=== PATIENT | female | born 1955 | race Caucasian/White ===

== ENCOUNTER → 2016-12-09 | Outpatient (CLI) | payer MEDICAID ==
[~2016-12-09] MED LIST: AMLO5TAB2 PO; CETI10TA18 PO; DIPH25TA2 PO; ENAL10TA PO; FERR324T5 PO; FEXO60TA9 PO; GABA300C10 PO; LEVO100T5 PO; MAGNESIUM PO; METF10002 PO; NAPH30DR2 EACHEYE; NAPR500T3 PO; SENN1TAB70 PO; SIMV20TA3 PO; TURM500C8 PO; [UNRECOGNIZED DRUG - CODE] EACHEYE
[2016-12-09 12:34] LABS: HEMOGLOBIN 13.9 g/dL (11.7-16.4)
[2016-12-09 12:46] LABS: ASPARTATE AMINO TRANSFERASE 21 U/L (15-37); BLOOD UREA NITROGEN 18 mg/dL (7-18)
== END | disposition home or self-care (01) ==
LOC: STAR 11:27
PROVIDERS: ATTEND Neurological Surgery
DX: Z01.818 Encounter for other preprocedural examination (principal); I10 Essential (primary) hypertension; E11.9 Type 2 diabetes mellitus without complications
CPT/HCPCS: 36415; 71020; 80053; 85025; 85610; 85730; 93005

== ENCOUNTER 2016-12-23 07:13 | Inpatient (IN) | payer MEDICAID, OTHER ==
[~2016-12-23] VITALS: Ht 165.1 cm; Wt 106.8 kg
[~2016-12-23 07:13] MED LIST changes: +BACITRACIN 50,000 UNIT ONE; +BUPIVACAINE/PF-EPI 0.5% 1:200K ONE; +THROMBIN 5,000 UNIT VIAL TP ONE
[2016-12-23] MEDS ORDERED: LACTATED RINGERS 1,000 ML IV SCH (07:41)
[2016-12-23 07:42] VITALS: BP 133/81
[2016-12-23] MEDS ORDERED: PNEUMOCOCCAL 23 VACCINE IM-VACC ONE (08:00)
[2016-12-23] MEDS ORDERED: MIDAZOLAM 1 MG/ML, 2ML ONE (09:00)
[2016-12-23] MEDS ORDERED: FENTANYL PF 250 MCG/5ML ONE (09:00)
[2016-12-23] MEDS ORDERED: ONDANSETRON 2MG/ML, 2ML ONE (09:47)
[2016-12-23] MEDS ORDERED: ROCURONIUM 10 MG/ML ONE (09:47)
[2016-12-23] MEDS ORDERED: NEOSTIGMINE 1 MG/ML, 10ML ONE (09:47)
[2016-12-23] MEDS ORDERED: CEFAZOLIN 1,000 MG ONE (09:47)
[2016-12-23] MEDS ORDERED: DEXAMETHASONE 4 MG/ML, 5ML ONE (09:47)
[2016-12-23] MEDS ORDERED: PROPOFOL 10 MG/ML, 20ML ONE (09:47)
[2016-12-23] MEDS ORDERED: GLYCOPYRROLATE 0.2MG/1ML ONE (09:47)
[2016-12-23] MEDS ORDERED: FENTANYL PF 100 MCG/2ML ONE (12:03)
[2016-12-23] MEDS ORDERED: OXYcodone 5 MG/5 ML ORAL.SOL UDC ONE (12:03)
[2016-12-23] MEDS: FENTANYL PF 100 MCG/2ML IV PRN ×2 (12:08→12:35)
[2016-12-23] MEDS ORDERED: MEPERIDINE/PF 25MG/0.5ML IVPush PRN (12:30)
[2016-12-23] MEDS ORDERED: ACETAMINOPHEN 325 MG TABLET PO PRN (12:30)
[2016-12-23] MEDS ORDERED: hydrALAzine 20 MG/ML, 1ML IV PRN (12:30)
[2016-12-23] MEDS ORDERED: OXYcodone 5 MG/5 ML ORAL.SOL UDC PO PRN (12:30)
[2016-12-23] MEDS ORDERED: LABETALOL 5MG/ML, 20ML IV PRN (12:30)
[2016-12-23] MEDS ORDERED: HYDROmorphone 1 MG/ML, 1ML IV PRN (12:30)
[2016-12-23] MEDS ORDERED: ONDANSETRON 2MG/ML, 2ML IVPush PRN (12:30)
[2016-12-23] MEDS ORDERED: HYDROmorphone 2 MG/ML, 1ML ONE (12:39)
[2016-12-23 13:45] VITALS: BP 122/73
[2016-12-23] MEDS ORDERED: DIPHENHYDRAMINE 50 MG/ML, 1ML IM PRN (14:30)
[2016-12-23] MEDS ORDERED: HYDROmorphone 2 MG/ML, 1ML IM PRN (14:30)
[2016-12-23] MEDS ORDERED: ONDANSETRON 2MG/ML, 2ML IV PRN (14:30)
[2016-12-23] MEDS ORDERED: DIPHENHYDRAMINE 50 MG/ML, 1ML IVPush PRN (14:30)
[2016-12-23] MEDS ORDERED: OXYcodone/APAP 5/325MG TABLET PO PRN (14:30)
[2016-12-23] MEDS ORDERED: HYDROmorphone 2MG TABLET PO PRN (14:30)
[2016-12-23] MEDS ORDERED: METHOCARBAMOL 750 MG TABLET PO PRN (14:30)
[2016-12-23] MEDS ORDERED: MAGNESIUM HYDROXIDE 8%, 30ML UDC PO PRN (14:30)
[2016-12-23] MEDS ORDERED: PROMETHAZINE 25 MG/ML, 1ML IM PRN (14:30)
[2016-12-23] MEDS ORDERED: BISACODYL 10 MG SUPP PR PRN (14:30)
[2016-12-23] MEDS ORDERED: DIPHENHYDRAMINE 50 MG CAPSULE PO PRN (14:30)
[2016-12-23] MEDS: NS + 20MEQ KCL 1,000 ML IV SCH (15:51)
[2016-12-23] MEDS: MAGNESIUM OXIDE 400 MG TABLET PO SCH ×2 (15:52→21:50)
[2016-12-23] MEDS: metFORMIN 500 MG TABLET PO SCH (17:44)
[2016-12-23] MEDS: CEFAZOLIN PMX 1GM/50ML 50 ML IVPB SCH (17:44)
[2016-12-23] MEDS: FERROUS SULFATE 325 MG TABLET PO SCH (17:50)
[2016-12-23 19:29] VITALS: BP 114/54
[2016-12-23] MEDS ORDERED: GABAPENTIN 300 MG CAPSULE PO SCH (21:00)
[2016-12-23] MEDS ORDERED: SENNA/DOCUSATE TABLET PO SCH (21:00)
[2016-12-23] MEDS ORDERED: SIMVASTATIN 20 MG TABLET PO SCH (21:00)
[2016-12-23] MEDS ORDERED: ZOLPIDEM 5MG TABLET PO PRN (21:00)
[2016-12-23] MEDS: ENALAPRIL 10 MG TABLET PO SCH (21:50)
[2016-12-23 23:44] VITALS: BP 110/56
[2016-12-24] MEDS: CEFAZOLIN PMX 1GM/50ML 50 ML IVPB SCH (03:00)
[2016-12-24] MEDS: NS + 20MEQ KCL 1,000 ML IV SCH ×2 (03:00→15:30)
[2016-12-24 03:15] VITALS: BP 93/42
[2016-12-24] MEDS ORDERED: LEVOTHYROXINE 100 MCG TABLET PO SCH (06:00)
[2016-12-24 07:41] VITALS: BP 108/71
[2016-12-24] MEDS: FERROUS SULFATE 325 MG TABLET PO SCH (08:31)
[2016-12-24] MEDS: HYDROcodone/APAP 5/325 TABLET PO PRN ×2 (08:31→13:43)
[2016-12-24] MEDS: metFORMIN 500 MG TABLET PO SCH (08:32)
[2016-12-24] MEDS: MAGNESIUM OXIDE 400 MG TABLET PO SCH ×2 (08:32→16:00)
[2016-12-24] MEDS: ENALAPRIL 10 MG TABLET PO SCH (08:33)
[2016-12-24] MEDS ORDERED: NAPHAZOLINE/PHENIRAMINE OPHTH OP SCH (09:00)
[2016-12-24] MEDS ORDERED: AMLODIPINE 5 MG TABLET PO SCH (09:00)
[2016-12-24] MEDS ORDERED: SENNA/DOCUSATE TABLET PO SCH (09:00)
[2016-12-24] MEDS ORDERED: LORATADINE 10 MG TABLET PO SCH (09:00)
[2016-12-24] MEDS ORDERED: METH750T87 PO (10:18)
[2016-12-24] MEDS ORDERED: HYDR-3240 PO (10:18)
[2016-12-24 13:20] VITALS: BP 100/48
[2016-12-24 15:31] VITALS: BP 109/62
== END 2016-12-24 16:35 | disposition home or self-care (01) | DRG 520 ==
LOC: OUT 07:13 → 4NOR 13:47 → OUT 13:58 → 4NOR 13:58 → DCLOUNGE 12-24 16:03
PROVIDERS: ADMIT Neurological Surgery; ATTEND Neurological Surgery
PROC: 01NB0ZZ Release Lumbar Nerve, Open Approach (ICD-10-PCS; 2016-12-23)
PROC: 01NR0ZZ Release Sacral Nerve, Open Approach (ICD-10-PCS; 2016-12-23)
PROC: 0SB20ZZ Excision of Lumbar Vertebral Disc, Open Approach (ICD-10-PCS; principal; 2016-12-23 10:00)
DX: M48.06 Spinal stenosis, lumbar region (principal); M47.816 Spondylosis without myelopathy or radiculopathy, lumbar region; M51.26 Other intervertebral disc displacement, lumbar region; F12.10 Cannabis abuse, uncomplicated; I10 Essential (primary) hypertension; E78.00 Pure hypercholesterolemia, unspecified; F32.9 Major depressive disorder, single episode, unspecified; F41.9 Anxiety disorder, unspecified; E11.9 Type 2 diabetes mellitus without complications; E04.9 Nontoxic goiter, unspecified; Z87.891 Personal history of nicotine dependence; Z90.710 Acquired absence of both cervix and uterus; Z79.84 Long term (current) use of oral hypoglycemic drugs; Z79.899 Other long term (current) drug therapy; Z90.49 Acquired absence of other specified parts of digestive tract; Z83.3 Family history of diabetes mellitus; Z82.49 Family history of ischemic heart disease and other diseases of the circulatory system; Z80.9 Family history of malignant neoplasm, unspecified; Z82.0 Family history of epilepsy and other diseases of the nervous system
CPT/HCPCS: 72100; 82962; 90732; J0690; J1100; J1170; J2250; J2270; J2405; J2704; J2710; J3010; J3480; J3490; J7120

== ENCOUNTER 2017-06-30 07:41 | Inpatient (IN) | payer MEDICAID ==
[~2017-06-30] VITALS: Ht 162.6 cm; Wt 103.6 kg
[~2017-06-30 07:41] MED LIST changes: +BUPIVACAINE/PF 0.5% ONE; -BUPIVACAINE/PF-EPI 0.5% 1:200K ONE; +EPINEPHRINE 1 MG/ML, 1ML ONE; +HYDR-3240 PO; +METH750T87 PO; -NAPR500T3 PO; +NAPR500T4 PO; +TURM500C3 PO; -TURM500C8 PO; +VANCOMYCIN 1,000 MG ONE
[2017-06-30] MEDS ORDERED: LACTATED RINGERS 1,000 ML IV SCH (08:03)
[2017-06-30 08:32] VITALS: BP 121/79
[2017-06-30] MEDS ORDERED: HYDR-3237 PO (08:42)
[2017-06-30] MEDS ORDERED: FENTANYL PF 100 MCG/2ML ONE ×4 (08:56→12:37)
[2017-06-30] MEDS ORDERED: MIDAZOLAM 1 MG/ML, 2ML ONE (08:56)
[2017-06-30] MEDS ORDERED: DEXAMETHASONE 4 MG/ML, 1ML ONE ×2 (08:57)
[2017-06-30] MEDS ORDERED: ONDANSETRON 2MG/ML, 2ML ONE ×2 (08:57)
[2017-06-30] MEDS ORDERED: ROCURONIUM 10 MG/ML ONE (08:57)
[2017-06-30] MEDS ORDERED: SUCCINYLCHOLINE 20 MG/ML, 10ML ONE (08:57)
[2017-06-30] MEDS ORDERED: PROPOFOL 10 MG/ML, 20ML ONE (08:57)
[2017-06-30] MEDS ORDERED: CEFAZOLIN 1,000 MG ONE ×2 (08:57)
[2017-06-30] MEDS ORDERED: OXYcodone 5 MG/5 ML ORAL.SOL UDC PO PRN (09:00)
[2017-06-30] MEDS ORDERED: ACETAMINOPHEN 325 MG TABLET PO PRN (09:00)
[2017-06-30] MEDS ORDERED: PROMETHAZINE 25 MG/ML, 1ML IV PRN (09:00)
[2017-06-30] MEDS ORDERED: ONDANSETRON 2MG/ML, 2ML IVPush PRN (09:00)
[2017-06-30] MEDS ORDERED: hydrALAzine 20 MG/ML, 1ML IV PRN (09:00)
[2017-06-30] MEDS ORDERED: MEPERIDINE/PF 25MG/0.5ML IVPush PRN (09:00)
[2017-06-30] MEDS ORDERED: LABETALOL 5MG/ML, 20ML IV PRN (09:00)
[2017-06-30] MEDS ORDERED: MIDAZOLAM 1 MG/ML, 5ML IV PRN (09:00)
[2017-06-30] MEDS ORDERED: ALBUTEROL SULFATE 2.5 MG/3 ML NPPB PRN (09:00)
[2017-06-30] MEDS ORDERED: FENTANYL PF 100 MCG/2ML IV PRN (09:00)
[2017-06-30] MEDS ORDERED: GLYCOPYRROLATE 0.4 MG/2 ML, 2ML ONE (11:56)
[2017-06-30] MEDS ORDERED: NEOSTIGMINE 1 MG/ML, 10ML ONE (11:57)
[2017-06-30] MEDS ORDERED: OXYcodone 5 MG/5 ML ORAL.SOL UDC ONE (12:37)
[2017-06-30] MEDS ORDERED: HYDROmorphone 1 MG/ML, 1ML ONE ×2 (12:37→12:39)
[2017-06-30] MEDS: HYDROmorphone 1 MG/ML, 1ML IV PRN ×2 (12:41→12:59)
[2017-06-30 13:50] VITALS: BP 105/65
[2017-06-30] MEDS ORDERED: MAGNESIUM HYDROXIDE 8%, 30ML UDC PO PRN (14:00)
[2017-06-30] MEDS ORDERED: HYDROcodone/APAP 5/325 TABLET PO PRN (14:00)
[2017-06-30] MEDS ORDERED: BISACODYL 10 MG SUPP PR PRN (14:00)
[2017-06-30] MEDS ORDERED: DIPHENHYDRAMINE 50 MG CAPSULE PO PRN (14:00)
[2017-06-30] MEDS ORDERED: PROMETHAZINE 25 MG/ML, 1ML IM PRN (14:00)
[2017-06-30] MEDS ORDERED: ONDANSETRON 2MG/ML, 2ML IV PRN (14:00)
[2017-06-30] MEDS ORDERED: HYDROmorphone 2 MG/ML, 1ML IM PRN (14:00)
[2017-06-30] MEDS ORDERED: DIPHENHYDRAMINE 50 MG/ML, 1ML IVPush PRN (14:00)
[2017-06-30] MEDS ORDERED: HYDROmorphone 2MG TABLET PO PRN (14:00)
[2017-06-30] MEDS ORDERED: DIPHENHYDRAMINE 50 MG/ML, 1ML IM PRN (14:00)
[2017-06-30] MEDS ORDERED: ALBUTEROL SULFATE 200 PUFFS/8.5 GR INH ONE (16:11)
[2017-06-30] MEDS ORDERED: PHENYLEPHRINE 10 MG/ML ONE (16:11)
[2017-06-30] MEDS: CEFAZOLIN PMX 1GM/50ML 50 ML IVPB SCH (16:58)
[2017-06-30] MEDS: NS + 20MEQ KCL 1,000 ML IV SCH (16:59)
[2017-06-30] MEDS: CETIRIZINE 10 MG TABLET PO SCH (16:59)
[2017-06-30] MEDS: metFORMIN 500 MG TABLET PO SCH (16:59)
[2017-06-30] MEDS: AMLODIPINE 5 MG TABLET PO SCH (16:59)
[2017-06-30 19:30] VITALS: BP 116/63
[2017-06-30] MEDS: GABAPENTIN 300 MG CAPSULE PO SCH (20:15)
[2017-06-30] MEDS: SIMVASTATIN 20 MG TABLET PO SCH (20:15)
[2017-06-30] MEDS: ENALAPRIL 10 MG TABLET PO SCH (20:16)
[2017-06-30] MEDS: SENNA/DOCUSATE TABLET PO SCH (20:16)
[2017-06-30] MEDS: FERROUS SULFATE 325 MG TABLET PO SCH (20:16)
[2017-06-30] MEDS: METHOCARBAMOL 750 MG TABLET PO PRN (20:19)
[2017-06-30] MEDS ORDERED: ZOLPIDEM 5MG TABLET PO PRN (21:00)
[2017-06-30 23:57] VITALS: BP 99/53
[2017-07-01] MEDS: CEFAZOLIN PMX 1GM/50ML 50 ML IVPB SCH (01:26)
[2017-07-01 04:01] VITALS: BP 96/57
[2017-07-01 05:36] LABS: HEMATOCRIT 31.9 % (34.6-47.8); HEMOGLOBIN 10.8 g/dL (11.7-16.4); WHITE BLOOD COUNT 10.2 x10^3/uL (3.4-10)
[2017-07-01 05:46] LABS: BLOOD UREA NITROGEN 12 mg/dL (7-18)
[2017-07-01] MEDS: METHOCARBAMOL 750 MG TABLET PO PRN ×2 (05:54→20:24)
[2017-07-01] MEDS: LEVOTHYROXINE 100 MCG TABLET PO SCH (05:54)
[2017-07-01] MEDS: NS + 20MEQ KCL 1,000 ML IV SCH ×2 (05:55→20:17)
[2017-07-01 06:54] VITALS: BP 103/59
[2017-07-01] MEDS: CETIRIZINE 10 MG TABLET PO SCH (08:06)
[2017-07-01] MEDS: AMLODIPINE 5 MG TABLET PO SCH (08:07)
[2017-07-01] MEDS: LORATADINE 10 MG TABLET PO SCH (08:07)
[2017-07-01] MEDS: ENALAPRIL 10 MG TABLET PO SCH ×2 (08:07→20:25)
[2017-07-01] MEDS: SENNA/DOCUSATE TABLET PO SCH ×2 (08:07→20:25)
[2017-07-01] MEDS: FERROUS SULFATE 325 MG TABLET PO SCH ×2 (08:07→20:24)
[2017-07-01] MEDS: metFORMIN 500 MG TABLET PO SCH ×2 (08:07→17:12)
[2017-07-01] MEDS: NAPHAZOLINE/PHENIRAMINE OPHTH EACHEYE SCH (08:08)
[2017-07-01] MEDS: OXYcodone/APAP 5/325MG TABLET PO PRN ×3 (08:25→17:12)
[2017-07-01 13:25] VITALS: BP 121/69
[2017-07-01 18:51] VITALS: BP 116/72
[2017-07-01] MEDS: GABAPENTIN 300 MG CAPSULE PO SCH (20:24)
[2017-07-01] MEDS: SIMVASTATIN 20 MG TABLET PO SCH (20:25)
[2017-07-02] MEDS: OXYcodone/APAP 5/325MG TABLET PO PRN ×3 (00:21→12:38)
[2017-07-02 00:25] VITALS: BP 127/70
[2017-07-02] MEDS: NS + 20MEQ KCL 1,000 ML IV SCH ×2 (03:30→16:00)
[2017-07-02] MEDS: LEVOTHYROXINE 100 MCG TABLET PO SCH (05:34)
[2017-07-02 07:36] VITALS: BP 129/79
[2017-07-02] MEDS: FERROUS SULFATE 325 MG TABLET PO SCH (08:09)
[2017-07-02] MEDS: AMLODIPINE 5 MG TABLET PO SCH (08:09)
[2017-07-02] MEDS: LORATADINE 10 MG TABLET PO SCH (08:09)
[2017-07-02] MEDS: SENNA/DOCUSATE TABLET PO SCH (08:09)
[2017-07-02] MEDS: ENALAPRIL 10 MG TABLET PO SCH (08:09)
[2017-07-02] MEDS: metFORMIN 500 MG TABLET PO SCH (08:10)
[2017-07-02] MEDS: CETIRIZINE 10 MG TABLET PO SCH (08:11)
[2017-07-02] MEDS: NAPHAZOLINE/PHENIRAMINE OPHTH EACHEYE SCH (08:17)
[2017-07-02 14:30] VITALS: BP 111/71
[2017-07-02] MEDS ORDERED: OXYC-302 PO (15:09)
[2017-07-02] MEDS ORDERED: METH750T87 PO (15:10)
== END 2017-07-02 15:30 | disposition home or self-care (01) | DRG 460 ==
LOC: ORIP 07:41 → 4NOR 13:40 → DCLOUNGE 07-02 15:06
PROVIDERS: ADMIT Neurological Surgery; ATTEND Neurological Surgery
PROC: 0ST20ZZ Resection of Lumbar Vertebral Disc, Open Approach (ICD-10-PCS; 2017-06-30)
PROC: 01NB0ZZ Release Lumbar Nerve, Open Approach (ICD-10-PCS; 2017-06-30)
PROC: 0SG00AJ Fusion of Lumbar Vertebral Joint with Interbody Fusion Device, Posterior Approach, Anterior Column, Open Approach (ICD-10-PCS; principal; 2017-06-30 10:30)
DX: M48.061 Spinal stenosis, lumbar region without neurogenic claudication (principal); M51.26 Other intervertebral disc displacement, lumbar region; M53.2X6 Spinal instabilities, lumbar region
CPT/HCPCS: 36415; 72100; 80048; 82962; 85025; C1713; J0171; J0690; J1100; J1170; J2250; J2270; J2405; J2704; J2710; J3010; J3370; J3480; J3490; C1762; J0330; J2370; J7120